=== PATIENT | female | born 2000 | race Caucasian/White ===

== ENCOUNTER 2022-07-22 09:37 | Emergency (ER) | payer BC ==
[~2022-07-22] VITALS: Ht 170.2 cm; Wt 89.5 kg
[2022-07-22 09:48] VITALS: BP 113/80; PULSE 85; TEMP 99.3
[2022-07-22] MEDS ORDERED: ADIPEX-P37.5 MG PO (09:55)
== END 2022-07-22 11:03 | disposition home or self-care (01) ==
LOC: COL.ER 09:37
DX: S93.401A Sprain of unspecified ligament of right ankle, initial encounter (principal); V00.831A Fall from motorized mobility scooter, initial encounter; Y92.410 Unspecified street and highway as the place of occurrence of the external cause